=== PATIENT | male | born 1955 | race Caucasian/White ===

== ENCOUNTER 2019-01-06 11:41 | Emergency (ER) | payer MEDICARE ==
[2019-01-06] MEDS ORDERED: Sodium Chloride 0.9% 10 ML Syringe FLUSH PRN (12:10)
[2019-01-06] MEDS ORDERED: HYDROmorphone 1 MG/ML Syringe IVPUSH ONE (12:16)
--- NOTE | 2019-01-06 12:25 | EDM.PDOC ---
ED HPI GENERAL MEDICAL PROBLEM - General Chief Complaint: Abdominal Pain Stated Complaint: ABDOMINAL PAIN Time Seen by Provider: 01/06/19 11:46 Source of Information: Reports: Patient History Limitations: Reports: No Limitations - History of Present Illness INITIAL COMMENTS - FREE TEXT/NARRATIVE: Patient reports left sided abdominal pain that feels like thousands of pins. Has had this pain for several months. He states he was told it was diabetic neuropathy and started on gabapentin. This has not helped. He also has had some nausea and chills recently. No fever, no body aches, no chest pain, not sob, no diarrhea, no bloody stools. He would like help with the pain as he states it has just become unbearable. Smokes 1/2 PPD. Blood sugars run 70-140. Onset: Gradual Duration: Getting Worse Location: Reports: Abdomen Quality: Reports: Other (feels like pins being inserted, like fire) Improves with: Reports: Medication Worsens with: Reports: Movement Associated Symptoms: Reports: No Other Symptoms - Related Data Allergies Allergy/AdvReac Type Severity Reaction Status Date / Time amitriptyline Allergy Other Verified 01/06/19 13:04 diphenhydramine Allergy Other Verified 01/06/19 13:04 tramadol Allergy Other Verified 01/06/19 13:04 Home Meds: Home Meds Albuterol [Ventolin HFA] 2 puff IN Q6H 01/06/19 [History] Aspirin 81 mg PO DAILY 01/06/19 [History] Budesonide/Formoterol [Symbicort 160-4.5 MCG] 2 puff INH BID 01/06/19 [History] Gabapentin [Neurontin] 2 cap PO TID 01/06/19 [History] Losartan Potassium 50 mg PO DAILY 01/06/19 [History] Rosuvastatin Calcium 10 mg PO DAILY 01/06/19 [History] metFORMIN HCl [Metformin ER Gastric] 1,000 mg PO BID 01/06/19 [History] ED ROS GENERAL - Review of Systems Review Of Systems: See Below Constitutional: Reports: No Symptoms HEENT: Reports: No Symptoms Respiratory: Reports: No Symptoms Cardiovascular: Reports: No Symptoms Endocrine: Reports: No Symptoms GI/Abdominal: Reports: Abdominal Pain : Reports: No Symptoms Musculoskeletal: Reports: No Symptoms Skin: Reports: No Symptoms Neurological: Reports: No Symptoms Psychiatric: Reports: No Symptoms Hematologic/Lymphatic: Reports: No Symptoms Immunologic: Reports: No Symptoms ED EXAM, GI/ABD - Physical Exam Exam: See Below Exam Limited By: No Limitations General Appearance: Alert, WD/WN, Mild Distress Eyes: Bilateral: Normal Appearance, EOMI Ears: Normal External Exam, Normal Canal, Hearing Grossly Normal, Normal TMs Nose: Normal Inspection, Normal Mucosa, No Blood Throat/Mouth: Normal Inspection, Normal Lips, Normal Teeth, Normal Gums, Normal Oropharynx, Normal Voice, No Airway Compromise Head: Atraumatic, Normocephalic Neck: Normal Inspection, Supple, Non-Tender, Full Range of Motion Respiratory/Chest: No Respiratory Distress, Lungs Clear, Normal Breath Sounds, No Accessory Muscle Use, Chest Non-Tender Cardiovascular: Normal Peripheral Pulses, Regular Rate, Rhythm, No Edema, No Gallop, No JVD, No Murmur, No Rub GI/Abdominal Exam: Normal Bowel Sounds, Soft, Non-Tender, No Organomegaly, No Distention, No Abnormal Bruit, No Mass, Pelvis Stable Back Exam: Normal Inspection, Full Range of Motion, NT Extremities: Normal Inspection, Normal Range of Motion, Non-Tender, Normal Capillary Refill, No Pedal Edema Neurological: Other (pain to palpation to abdomen/back, feels like pinpricks) Psychiatric: Anxious Skin Exam: Warm Lymphatic: No Adenopathy Course - Vital Signs Last Recorded V/S: Last Vital Signs Temp 35.8 C 01/06/19 11:46 Pulse 97 01/06/19 11:46 Resp 16 01/06/19 11:46 BP 132/96 H 01/06/19 11:46 Pulse Ox 98 01/06/19 11:46 - Orders/Labs/Meds Orders: Active Orders 24 hr Category Date Time Status C-REACTIVE PROTEIN [CHEM] Stat Lab 01/06/19 12:10 Ordered CBC WITH AUTO DIFF [HEME] Stat Lab 01/06/19 12:10 Ordered COMPREHENSIVE METABOLIC PN,CMP [CHEM] Stat Lab 01/06/19 12:10 Ordered TSH ULTRASENSITIVE [CHEM] Stat Lab 01/06/19 12:10 Ordered UA W/MICROSCOPIC [URIN] Stat Lab 01/06/19 12:10 Ordered Sodium Chloride 0.9% [Normal Saline] 1,000 ml Med 01/06/19 12:30 Ordered IV ASDIRECTED Sodium Chloride 0.9% [Saline Flush] Med 01/06/19 12:10 Ordered 10 ml FLUSH ASDIRECTED PRN Saline Lock Insert [OM.PC] Routine Oth 01/06/19 12:10 Ordered Medication Orders Sodium Chloride (Normal Saline) 1,000 mls @ 999 mls/hr IV ASDIRECTED KALEB Sodium Chloride (Saline Flush) 10 ml FLUSH ASDIRECTED PRN PRN Reason: Keep Vein Open Meds: Medications Generic Name Dose Route Start Last Admin Trade Name Freq PRN Reason Stop Dose Admin Sodium Chloride 1,000 mls @ 999 mls/hr 01/06/19 12:30 Normal Saline IV ASDIRECTED KALEB Sodium Chloride 10 ml 01/06/19 12:10 Saline Flush FLUSH ASDIRECTED PRN Keep Vein Open Discontinued Medications Generic Name Dose Route Start Last Admin Trade Name Freq PRN Reason Stop Dose Admin Hydromorphone HCl 1 mg 01/06/19 12:16 Dilaudid IVPUSH 01/06/19 12:17 ONETIME ONE Departure - Departure Time of Disposition: 14:03 Disposition: Home, Self-Care 01 Condition: Good Clinical Impression: Diabetic neuropathy, painful - Discharge Information *PRESCRIPTION DRUG MONITORING PROGRAM REVIEWED*: No *COPY OF PRESCRIPTION DRUG MONITORING REPORT IN PATIENT DANUTA: No Instructions: Neuropathic Pain, Diabetes Mellitus and Nutrition Additional Instructions: Plan 1. Establish care with a primary provider here in [place] 2. Start Lyrica 50 mg every 8 hours, reduce gabapentin to 1 tablet twice a day for 3 days, then 1 tablet daily for 2 days, then discontinue while on lyrica. Do not operate any equipment or drive while taking these medications until you know how they will effect you 3. I did write for refills of the Lyrica so you will need to see a primary for additional refills. They may also want to try something different 4. [facility] use of narcotic pain medications is not recommended for neuropathic pain. I will be unable to prescribe any due to this 5. Keep your diabetes well controlled as if it is not, your neuropathic pain can spread more quickly and become more painful 6. Please call if you have any additional questions or concerns - Problem List & Annotations (1) Diabetic neuropathy, painful SNOMED Code(s): 471202336, [id number] Code(s): E11.40 - TYPE 2 DIABETES MELLITUS WITH DIABETIC NEUROPATHY, UNSP Status: Acute Priority: Medium Current Visit: Yes - Problem List Review Problem List Initiated/Reviewed/Updated: Yes - My Orders Last 24 Hours: My Active Orders 01/06/19 12:10 C-REACTIVE PROTEIN [CHEM] Stat CBC WITH AUTO DIFF [HEME] Stat COMPREHENSIVE METABOLIC PN,CMP [CHEM] Stat TSH ULTRASENSITIVE [CHEM] Stat UA W/MICROSCOPIC [URIN] Stat Sodium Chloride 0.9% [Saline Flush] 10 ml FLUSH ASDIRECTED PRN Saline Lock Insert [OM.PC] Routine 01/06/19 12:30 Sodium Chloride 0.9% [Normal Saline] 1,000 ml IV ASDIRECTED - Assessment/Plan Last 24 Hours: My Active Orders 01/06/19 12:10 C-REACTIVE PROTEIN [CHEM] Stat CBC WITH AUTO DIFF [HEME] Stat COMPREHENSIVE METABOLIC PN,CMP [CHEM] Stat TSH ULTRASENSITIVE [CHEM] Stat UA W/MICROSCOPIC [URIN] Stat Sodium Chloride 0.9% [Saline Flush] 10 ml FLUSH ASDIRECTED PRN Saline Lock Insert [OM.PC] Routine 01/06/19 12:30 Sodium Chloride 0.9% [Normal Saline] 1,000 ml IV ASDIRECTED Assessment:: diabetic neuropathy Plan: Plan 1. Establish care with a primary provider here in [place] 2. Start Lyrica 50 mg every 8 hours, reduce gabapentin to 1 tablet twice a day for 3 days, then 1 tablet daily for 2 days, then discontinue while on lyrica. Do not operate any equipment or drive while taking these medications until you know how they will effect you 3. I did write for refills of the Lyrica so you will need to see a primary for additional refills. They may also want to try something different 4. [facility] use of narcotic pain medications is not recommended for neuropathic pain. I will be unable to prescribe any due to this 5. Keep your diabetes well controlled as if it is not, your neuropathic pain can spread more quickly and become more painful 6. Please call if you have any additional questions or concerns
[2019-01-06] MEDS ORDERED: Sodium Chloride 0.9% 1,000 ML IV SCH (12:30)
[2019-01-06 12:45] LABS: HEMOGLOBIN A1C 6.6 % (4.5-6.2)
[2019-01-06 13:10] LABS: CHLORIDE,CL 98 mmol/L (98-107); SODIUM,NA 135 mmol/L (136-145)
[2019-01-06 13:11] LABS: ANION GAP 15.4 mmol/L (10-20)
== END 2019-01-06 14:03 | disposition home or self-care (01) ==
LOC: VM.ED 11:41
DX: E11.40 Type 2 diabetes mellitus with diabetic neuropathy, unspecified (principal); Z79.82 Long term (current) use of aspirin; Z79.84 Long term (current) use of oral hypoglycemic drugs; Z88.8 Allergy status to other drugs, medicaments and biological substances; Z88.5 Allergy status to narcotic agent
CPT/HCPCS: 80053; 81001; 83036; 84443; 85025; 86140; 96361; 96374; 99283; J1170; J7030; 36415

== ENCOUNTER 2019-02-02 10:39 | Emergency (ER) | payer MEDICARE ==
[2019-02-02] MEDS ORDERED: methylPREDNISolone Sodium Succinate 125 MG/2 ML SDV IV ONE (11:00)
[2019-02-02] MEDS ORDERED: Morphine 4 MG/ML Syringe IVPUSH ONE (11:03)
[2019-02-02 11:41] LABS: CHLORIDE,CL 92 mmol/L (98-107)
[2019-02-02 11:43] LABS: ANION GAP 15.2 mmol/L (10-20); SODIUM,NA 126 mmol/L (136-145)
[2019-02-02] MEDS ORDERED: Sodium Chloride 0.9% 1,000 ML IV ONE (11:43)
--- NOTE | 2019-02-02 12:32 | CR ---
[id number] RAD/RAD Chest PA or AP 1V EXAM: FRONTAL CHEST INDICATION: Chest pain. COMPARISON: December 04, 2010. DISCUSSION: Development of mild right hilar fullness. Mild scarring or atelectasis in the lung bases. Normal heart size. Chronic right seventh rib fracture without interval change. IMPRESSION: 1. Development of mild right hilar fullness. Consider chest CT with contrast for further evaluation. Neil Stewart MD 02/02/19 0544 Thank you for allowing us to participate in the care of your patient.
[2019-02-02] MEDS ORDERED: Acetaminophen/HYDROcodone 325-10 MG Tab PO ONE (12:45)
[2019-02-02] MEDS ORDERED: Ketorolac 15 MG/ML SDV IVPUSH ONE (12:45)
[2019-02-02] MEDS ORDERED: Iopamidol 612 MG/ML 100 ML Bottle IVPUSH ONE (12:52)
--- NOTE | 2019-02-02 13:56 | CT ---
[id number] CT/CT Chest W IV Exam: CT Chest W IV Clinical Data: RIGHT HILAR MASS. CHEST PAIN. COMPARISON: CORRELATION IS MADE WITH TODAY'S CHEST RADIOGRAPH. FINDINGS: Extensive bullous lung disease is seen. There is a 2 cm enhancing liver mass in segment VII, likely a hemangioma. There are no pulmonary emboli. There are atheromatous calcifications. There is evidence of bronchiectasis. There is no adrenal mass. A 2 cm soft tissue density is seen on image 44, series 2. This is in the right hilar region. There are minimal exam is unremarkable. IMPRESSION: 2 CM RIGHT HILAR SOFT TISSUE DENSITY ON IMAGE 44, SERIES 2. THIS FINDING MAY BENEFIT FROM FURTHER FOLLOW-UP. CONSIDER SURGICAL OPINION. Fadi Taylor MD 02/02/19 3736 Thank you for allowing us to participate in the care of your patient.
--- NOTE | 2019-02-02 20:34 | EDM.PDOC ---
ED HPI GENERAL MEDICAL PROBLEM - General Chief Complaint: Chest Pain Stated Complaint: neuropathy pain Time Seen by Provider: 02/02/19 10:45 Source of Information: Reports: Patient History Limitations: Reports: No Limitations - History of Present Illness INITIAL COMMENTS - FREE TEXT/NARRATIVE: Pt. presents to ER complaining of severe L sided anteriolateral chest pain. He states that he has been having issues with cough and wheezing recently. He has had a productive cough. He is a smoker. He states that he has been dealing with and has been worked up for neuropathic chest discomfort and is currently on gabapentin for this. He states that this discomfort is potentiated with movement, deep breathing, and cough. He complains of intermittent chills. No nausea, vomiting, or diarrhea. Denies any sore throat. No rhinorrhea. Denies any skin rashes. 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, Other (see below) (gabapentin) Chest Pain Score (Numeric/FACES): 10 - Related Data Allergies Allergy/AdvReac Type Severity Reaction Status Date / Time amitriptyline Allergy Other Verified 01/06/19 13:04 diphenhydramine Allergy Other Verified 01/06/19 13:04 tramadol Allergy Other Verified 01/06/19 13:04 Home Meds: Home Meds Albuterol [Ventolin HFA] 2 puff IN Q6H 01/06/19 [History] Aspirin 81 mg PO DAILY 01/06/19 [History] Budesonide/Formoterol [Symbicort 160-4.5 MCG] 2 puff INH BID 01/06/19 [History] Gabapentin [Neurontin] 2 cap PO TID 01/06/19 [History] Losartan Potassium 50 mg PO DAILY 01/06/19 [History] Rosuvastatin Calcium 10 mg PO DAILY 01/06/19 [History] metFORMIN HCl [Metformin ER Gastric] 1,000 mg PO BID 01/06/19 [History] Past Medical History Cardiovascular History: Reports: High Cholesterol, Hypertension Respiratory History: Reports: COPD Endocrine/Metabolic History: Reports: Diabetes, Type II Social & Family History - Family History Family Medical History: Noncontributory - Tobacco Use Smoking Status *Q: Current Every Day Smoker Years of Tobacco use: 20 Packs/Tins Daily: 0.2 - Recreational Drug Use Recreational Drug Use: No ED ROS GENERAL - Review of Systems Review Of Systems: See Below Constitutional: Reports: Chills. Denies: Malaise, Weakness, Fatigue, Diaphoresis HEENT: Reports: No Symptoms Respiratory: Reports: Pleuritic Chest Pain, Cough, Sputum Cardiovascular: Reports: Chest Pain Endocrine: Reports: No Symptoms GI/Abdominal: Reports: No Symptoms : Reports: No Symptoms Musculoskeletal: Reports: No Symptoms Skin: Reports: No Symptoms Neurological: Reports: Other (hx. of neuropathic chest pain) Psychiatric: Reports: No Symptoms Hematologic/Lymphatic: Reports: No Symptoms Immunologic: Reports: No Symptoms ED EXAM, GENERAL - Physical Exam Exam: See Below Exam Limited By: No Limitations General Appearance: Alert, WD/WN, No Apparent Distress Eye Exam: Bilateral Eye: EOMI, Normal Fundi, Normal Inspection, PERRL Throat/Mouth: Normal Inspection, Normal Lips, Normal Teeth, Normal Gums, Normal Oropharynx, Normal Voice, No Airway Compromise Head: Atraumatic, Normocephalic Neck: Normal Inspection, Supple, Non-Tender, Full Range of Motion Respiratory/Chest: No Respiratory Distress, Decreased Breath Sounds, Crackles, Wheezing, Other (chest exquisitely tender to palpation on the L anterior and lateral areas. No rash noted. No erythema. No crepitus noted. No rub noted.) Cardiovascular: Normal Peripheral Pulses, Regular Rate, Rhythm, No Edema, No JVD , No Rub Peripheral Pulses: 4+: Radial (L), Radial (R) GI/Abdominal: Normal Bowel Sounds, Soft, Non-Tender, No Organomegaly, No Distention (Male) Exam: Deferred Rectal (Males) Exam: Deferred Back Exam: Normal Inspection, Full Range of Motion Extremities: Normal Inspection, Normal Range of Motion, Non-Tender, No Pedal Edema, Normal Capillary Refill Neurological: Alert, Oriented, CN II-XII Intact, Normal Cognition, Normal Gait, Normal Reflexes, No Motor/Sensory Deficits Psychiatric: Normal Affect, Tearful Skin Exam: Warm, Dry, Intact, Normal Color, No Rash Lymphatic: No Adenopathy EKG INTERPRETATION Rhythm: NSR [place]: Normal P-Wave: Present QRS: Normal ST-T: Normal QT: Normal Course - Vital Signs Last Recorded V/S: Last Vital Signs Temp 36.7 C 02/02/19 10:40 Pulse 88 02/02/19 13:20 Resp 20 02/02/19 14:10 BP 116/66 02/02/19 14:10 Pulse Ox 91 L 02/02/19 14:10 - Orders/Labs/Meds Orders: Active Orders 24 hr Category Date Time Status EKG Documentation Completion [RC] STAT Care 02/02/19 10:59 Active Labs: Laboratory Tests 02/02/19 02/02/19 02/02/19 Range/Units 11:13 11:13 11:13 WBC 8.7 (4.0-10.0) x10^3/uL RBC 4.76 (4.5-6.0) x10^6/uL Hgb 15.1 (14.0-18.0) g/dL Hct 42.8 (40.0-52.0) % MCV 89.9 (78.0-93.0) fL MCH 31.7 (26.0-32.0) pg MCHC 35.3 (32.0-36.0) g/dL RDW Coeff of Viktoriya 12.9 (10.0-15.0) % Plt Count 287 D (130-400) x10^3/uL Neut % (Auto) 76.5 (50.0-80.0) % Lymph % (Auto) 11.3 L (25.0-50.0) % [place] % (Auto) 11.8 H (2.0-11.0) % Eos % (Auto) 0.1 (0.0-4.0) % Baso % (Auto) 0.3 (0.2-1.2) % PT 10.0 (10.0-12.8) SEC INR 0.9 L (2.0-3.5) D-Dimer, Quantitative (<=0.58) mg/LFEU Sodium 126 L* (136-145) mmol/L Potassium 4.2 (3.5-5.1) mmol/L Chloride 92 L (98-107) mmol/L Carbon Dioxide 23 (21-32) mmol/L Anion Gap 15.2 (10-20) mmol/L BUN 11 (7-18) mg/dL Creatinine 0.7 (0.70-1.30) mg/dL Est Cr Clr Drug Dosing TNP Estimated GFR (MDRD) > 60 Glucose 131 H (74-106) mg/dL Lactic Acid (0.4-2.0) mmol/L Calcium 9.0 (8.5-10.1) mg/dL Corrected Calcium 9.00 (8.5-10.1) mg/dL Phosphorus 2.9 (2.6-4.7) mg/dL Magnesium 1.8 (1.8-2.4) mg/dL Total Bilirubin 0.6 (0.2-1.0) mg/dL AST 23 (15-37) U/L ALT 30 (16-63) U/L Alkaline Phosphatase 88 (46-116) U/L POC Troponin I (0.00-0.08) ng/mL C-Reactive Protein 3.3 H (<=0.9) mg/dL Total Protein 8.4 H (6.4-8.2) g/dL Albumin 4.0 (3.4-5.0) g/dL Globulin 4.4 Albumin/Globulin Ratio 0.91 02/02/19 02/02/19 02/02/19 Range/Units 11:13 11:13 11:20 WBC (4.0-10.0) x10^3/uL RBC (4.5-6.0) x10^6/uL Hgb (14.0-18.0) g/dL Hct (40.0-52.0) % MCV (78.0-93.0) fL MCH (26.0-32.0) pg MCHC (32.0-36.0) g/dL RDW Coeff of Viktoriya (10.0-15.0) % Plt Count (130-400) x10^3/uL Neut % (Auto) (50.0-80.0) % Lymph % (Auto) (25.0-50.0) % [place] % (Auto) (2.0-11.0) % Eos % (Auto) (0.0-4.0) % Baso % (Auto) (0.2-1.2) % PT (10.0-12.8) SEC INR (2.0-3.5) D-Dimer, Quantitative 0.26 (<=0.58) mg/LFEU Sodium (136-145) mmol/L Potassium (3.5-5.1) mmol/L Chloride (98-107) mmol/L Carbon Dioxide (21-32) mmol/L Anion Gap (10-20) mmol/L BUN (7-18) mg/dL Creatinine (0.70-1.30) mg/dL Est Cr Clr Drug Dosing Estimated GFR (MDRD) Glucose (74-106) mg/dL Lactic Acid 1.0 (0.4-2.0) mmol/L Calcium (8.5-10.1) mg/dL Corrected Calcium (8.5-10.1) mg/dL Phosphorus (2.6-4.7) mg/dL Magnesium (1.8-2.4) mg/dL Total Bilirubin (0.2-1.0) mg/dL AST (15-37) U/L ALT (16-63) U/L Alkaline Phosphatase (46-116) U/L POC Troponin I 0.00 (0.00-0.08) ng/mL C-Reactive Protein (<=0.9) mg/dL Total Protein (6.4-8.2) g/dL Albumin (3.4-5.0) g/dL Globulin Albumin/Globulin Ratio Meds: Medications Discontinued Medications Generic Name Dose Route Start Last Admin Trade Name Freq PRN Reason Stop Dose Admin Hydrocodone Bitart/Acetaminophen 1 tab 02/02/19 12:45 02/02/19 12:55 [place] 325-10 Mg PO 02/02/19 12:46 1 tab ONETIME ONE Administration Sodium Chloride 1,000 mls @ 1,000 mls/hr 02/02/19 11:43 02/02/19 11:45 Normal Saline IV 02/02/19 12:42 1,000 mls/hr ONETIME ONE Administration Iopamidol 100 ml 02/02/19 12:52 02/02/19 13:20 Isovue-300 (61%) IVPUSH 02/02/19 12:53 100 ml ONETIME ONE Administration Ketorolac Tromethamine 15 mg 02/02/19 12:45 02/02/19 12:52 Toradol IVPUSH 02/02/19 12:46 15 mg ONETIME ONE Administration Methylprednisolone Sodium Succinate 125 mg 02/02/19 11:00 02/02/19 11:27 Solu-Medrol IV 02/02/19 11:01 125 mg ONETIME ONE Administration Morphine Sulfate 4 mg 02/02/19 11:03 02/02/19 11:27 Morphine IVPUSH 02/02/19 11:04 4 mg ONETIME ONE Administration - Radiology Interpretation Free Text/Narrative:: CXR shows increased hilar opacification/mass on the R. No pathology on L or in area of discomfort. CT chest with contrast was obtained and showed 2 cm R hilar density; pt. reports that he has some scarring to the lung tissue following a pneumothorax several years ago. This is an incidental finding and again not in the area of pain. No pleural thickening of fluid noted on the L. There is evidence of bronchiectasis. - Re-Assessments/Exams Free Text/Narrative Re-Assessment/Exam: Pt. was given solu medrol and morphine which did not help with discomfort. Pt. was subsequently given toradol and oral [place] which did help somewhat with the discomfort. He was given a liter of NS IV. He remained stable in by care in ER. Departure - Departure Time of Disposition: 14:16 Disposition: Home, Self-Care 01 Clinical Impression: Atypical chest pain, COPD exacerbation - Discharge Information Instructions: Chronic Obstructive Pulmonary Disease Exacerbation, Nonspecific Chest Pain, [id number], Pulmonary Nodule, [id number], Probiotics Referrals: Bob Nunez MD [Primary Care Provider] - Forms: ED Department Discharge Additional Instructions: Prednisone 40mg once daily [place] 10/325mg 1 every 6 hours Ibuprofen 600mg every 6 hours Doxycycline 100mg twice daily for 10 days There was an incidental finding of a lung nodule that will likely need to be followed by [facility]. Discuss this with Dr. Nunez when you follow-up in 10-14 days - My Orders Last 24 Hours: My Active Orders 02/02/19 10:59 EKG Documentation Completion [RC] STAT - Assessment/Plan Last 24 Hours: My Active Orders 02/02/19 10:59 EKG Documentation Completion [RC] STAT Plan: rednisone 40mg once daily [place] 10/325mg 1 every 6 hours Ibuprofen 600mg every 6 hours Doxycycline 100mg twice daily for 10 days There was an incidental finding of a lung nodule that will likely need to be followed by [facility]. Discuss this with Dr. Nunez when you follow-up in 10-14 days
== END 2019-02-02 14:16 | disposition home or self-care (01) ==
LOC: VM.ED 10:39
DX: J44.1 Chronic obstructive pulmonary disease with (acute) exacerbation (principal); R07.89 Other chest pain; F17.210 Nicotine dependence, cigarettes, uncomplicated; E11.9 Type 2 diabetes mellitus without complications; Z79.84 Long term (current) use of oral hypoglycemic drugs; Z79.82 Long term (current) use of aspirin; Z79.899 Other long term (current) drug therapy; Z88.6 Allergy status to analgesic agent; Z88.8 Allergy status to other drugs, medicaments and biological substances
CPT/HCPCS: 71045; 71260; 80053; 83605; 83735; 84100; 84484; 85025; 85379; 85610; 86140; 93005; 93010; 96361; 96374; 96375; 99284-GF; 99285-25; A9270-GY; J1885; J2270; J2930; J7030; Q9967

== ENCOUNTER 2019-12-29 12:21 | Emergency (ER) | payer MEDICARE ==
[2019-12-29] MEDS ORDERED: Ondansetron 4 MG/2 ML SDV IVPUSH ONE (12:51)
[2019-12-29] MEDS ORDERED: fentaNYL 100 MCG/2 ML SDV IVPUSH ONE ×2 (12:51→15:29)
[2019-12-29] MEDS ORDERED: Sodium Chloride 0.9% 10 ML Syringe FLUSH PRN (12:51)
[2019-12-29] MEDS ORDERED: Sodium Chloride 0.9% 1,000 ML IV ONE (12:51)
[2019-12-29] MEDS ORDERED: Ketorolac 30 MG/ML SDV IVPUSH ONE (12:51)
--- NOTE | 2019-12-29 12:53 | EDM.PDOC ---
ED HPI GENERAL MEDICAL PROBLEM - General Chief Complaint: Skin Complaint Stated Complaint: PAIN IN ABDOMEN/R SIDE Time Seen by Provider: 12/29/19 12:44 Source of Information: Reports: Patient - History of Present Illness INITIAL COMMENTS - FREE TEXT/NARRATIVE: Ibrahima is a 64 y/o male who comes to the ER with complaints of pain in the RUQ that he "has had for months". He reports that he thinks the pain is nueropathy and that he was given dome Lyrica, but only took it a few weeks and then did not have refills so he quit. He has not been in to see a PCP since last fall. He also admits he has not taken any of his chronic meds in a few months. He attempte to get an appt with Dr Arturo Raza today at the [facility], but apparently they could not find his records. He denies any issues with constipation, diarrhea, or voiding. He rates the pain constant and 10/10 in the RUQ region. Right Thoracic Pain Score (Numeric/FACES): 10 - Related Data Allergies Allergy/AdvReac Type Severity Reaction Status Date / Time amitriptyline Allergy Other Verified 01/06/19 13:04 diphenhydramine Allergy Other Verified 01/06/19 13:04 tramadol Allergy Other Verified 01/06/19 13:04 Home Meds: Home Meds HYDROcodone/Ibuprofen [Vicoprofen] 1 tab PO Q6H PRN 5 Days #20 tab 12/29/19 [Rx] Past Medical History Cardiovascular History: Reports: High Cholesterol, Hypertension Respiratory History: Reports: COPD Endocrine/Metabolic History: Reports: Diabetes, Type II Social & Family History - Family History Family Medical History: Noncontributory ED ROS GENERAL - Review of Systems Review Of Systems: See Below Constitutional: Reports: No Symptoms HEENT: Reports: No Symptoms Respiratory: Reports: No Symptoms Cardiovascular: Reports: No Symptoms Endocrine: Reports: No Symptoms GI/Abdominal: Reports: Abdominal Pain (RUQ pain). Denies: Constipation, Diarrhea, Decreased Appetite, Nausea, Vomiting : Reports: No Symptoms Musculoskeletal: Reports: No Symptoms Skin: Reports: No Symptoms Neurological: Reports: Tingling (RUQ region) Psychiatric: Reports: No Symptoms Hematologic/Lymphatic: Reports: No Symptoms Immunologic: Reports: No Symptoms ED EXAM, SKIN/RASH Exam: See Below General Appearance: Alert, WD/WN, No Apparent Distress, Other (Adult male, sitting on ER cart holding up his shirt and pointing to the pain.) Ears: Normal Canal, Hearing Grossly Normal Nose: Normal Inspection Throat/Mouth: Normal Inspection, Normal Lips, Normal Teeth Head: Atraumatic, Normocephalic Neck: Normal Inspection Respiratory/Chest: No Respiratory Distress, Lungs Clear, Normal Breath Sounds, No Accessory Muscle Use, Chest Non-Tender Cardiovascular: Normal Peripheral Pulses, Regular Rate, Rhythm, No Murmur GI/Abdominal: Normal Bowel Sounds, Soft, Guarding, Tender, Mass (RUQ region, + tenderness) (Male) Exam: Deferred Rectal (Males) Exam: Deferred Back Exam: Normal Inspection. No: CVA Tenderness (L), CVA Tenderness (R) Extremities: Normal Inspection, Normal Range of Motion, Normal Capillary Refill Neurological: Alert, Oriented, CN II-XII Intact, Normal Cognition, Normal Gait Psychiatric: Normal Affect, Normal Mood Skin: Warm, Dry, Intact, Normal Color, No Rash Lymphatic: No Adenopathy Course - Vital Signs Text/Narrative:: 1250 The patient was seen by the RN CLINICAL DOCUMENTATION SPECIALIST. Labs adn CT ordered. He was also given a liter of NS, Fentanyl 100mcg IVP, Toradol 30 mg IVP, and Zofran 4mg IVP. [address] results. Pain returning to RUQ region, will order Fentanyl 100mcg IVP. 1535 [facility] contacted and CT sent for surgeon to review and advise of any acute findings. Awaiting call back from [place]. [address] Leigh, order caller surgeon at [place]. She not fell there was anything acute and advised OP follow up for the MRI as recommended. Patient was given discharge instructions and sent home in stable condition. Last Recorded V/S: Last Vital Signs Temp 36.6 C 12/29/19 12:28 Pulse 104 H 12/29/19 12:28 Resp 16 12/29/19 12:28 BP 161/104 H 12/29/19 12:28 Pulse Ox 97 12/29/19 12:28 - Orders/Labs/Meds Orders: Active Orders 24 hr Category Date Time Status Sodium Chloride 0.9% [Saline Flush] Med 12/29/19 12:51 Active 10 ml FLUSH ASDIRECTED PRN Saline Lock Insert [OM.PC] Stat Oth 12/29/19 12:51 Ordered Medication Orders Sodium Chloride (Saline Flush) 10 ml FLUSH ASDIRECTED PRN PRN Reason: Keep Vein Open Labs: Laboratory Tests 12/29/19 12/29/19 12/29/19 Range/Units 13:10 13:10 13:20 WBC 8.9 (4.0-10.0) x10^3/uL RBC 5.34 (4.5-6.0) x10^6/uL Hgb 16.4 (14.0-18.0) g/dL Hct 47.5 (40.0-52.0) % MCV 89.0 (78.0-93.0) fL MCH 30.7 (26.0-32.0) pg MCHC 34.5 (32.0-36.0) g/dL RDW Coeff of Viktoriya 12.8 (10.0-15.0) % Plt Count 366 D (130-400) x10^3/uL Neut % (Auto) 59.4 (50.0-80.0) % Lymph % (Auto) 30.5 (25.0-50.0) % Porter % (Auto) 7.6 (2.0-11.0) % Eos % (Auto) 1.8 (0.0-4.0) % Baso % (Auto) 0.7 (0.2-1.2) % Sodium 136 (136-145) mmol/L Potassium 4.3 (3.5-5.1) mmol/L Chloride 98 (98-107) mmol/L Carbon Dioxide 27 (21-32) mmol/L Anion Gap 15.3 (10-20) mmol/L BUN 15 (7-18) mg/dL Creatinine 0.8 (0.70-1.30) mg/dL Est Cr Clr Drug Dosing TNP Estimated GFR (MDRD) > 60 Glucose 134 H (74-106) mg/dL Calcium 9.2 (8.5-10.1) mg/dL Corrected Calcium 9.12 (8.5-10.1) mg/dL Total Bilirubin 0.5 (0.2-1.0) mg/dL AST 20 (15-37) U/L ALT 31 (16-63) U/L Alkaline Phosphatase 84 (46-116) U/L Total Protein 8.3 H (6.4-8.2) g/dL Albumin 4.1 (3.4-5.0) g/dL Globulin 4.2 Albumin/Globulin Ratio 0.98 Amylase 61 (25-115) U/L Lipase 156 (73-393) U/L Urine Color Dark yellow H (YELLOW) Urine Appearance Clear (CLEAR) Urine pH 6.0 (5.0-8.0) Ur Specific [place] 1.025 Urine Protein Negative (NEGATIVE) mg/dL Urine Glucose (UA) 250 H (NEGATIVE) mg/dL Urine Ketones Negative (NEGATIVE) mg/dL Urine Occult Blood Negative (NEGATIVE) Urine Nitrite Negative (NEGATIVE) Urine Bilirubin Negative (NEGATIVE) Urine Urobilinogen 0.2 (0.2) EU/dL Ur Leukocyte Esterase Negative (NEGATIVE) Urine Opiates Screen (NEGATIVE) Ur Buprenorphine Scrn (NEGATIVE) Ur Oxycodone Screen (NEGATIVE) Ur EDDP (Meth Metab) (NEGATIVE) Urine Methadone Screen (NEGATIVE) Ur Barbituates Screen (NEGATIVE) Ur Tricyclics Screen (NEGATIVE) Ur Phencyclidine Scrn (NEGATIVE) Ur Amphetamines Screen (NEGATIVE) U Methamphetamines Scrn (NEGATIVE) Urine MDMA Screen (NEGATIVE) U Benzodiazepines Scrn (NEGATIVE) Urine Cocaine Screen (NEGATIVE) U Marijuana (THC) Screen (NEGATIVE) Ethyl Alcohol < 3 (0-3) mg/dL 12/29/19 Range/Units 13:20 WBC (4.0-10.0) x10^3/uL RBC (4.5-6.0) x10^6/uL Hgb (14.0-18.0) g/dL Hct (40.0-52.0) % MCV (78.0-93.0) fL MCH (26.0-32.0) pg MCHC (32.0-36.0) g/dL RDW Coeff of Viktoriya (10.0-15.0) % Plt Count (130-400) x10^3/uL Neut % (Auto) (50.0-80.0) % Lymph % (Auto) (25.0-50.0) % Porter % (Auto) (2.0-11.0) % Eos % (Auto) (0.0-4.0) % Baso % (Auto) (0.2-1.2) % Sodium (136-145) mmol/L Potassium (3.5-5.1) mmol/L Chloride (98-107) mmol/L Carbon Dioxide (21-32) mmol/L Anion Gap (10-20) mmol/L BUN (7-18) mg/dL Creatinine (0.70-1.30) mg/dL Est Cr Clr Drug Dosing Estimated GFR (MDRD) Glucose (74-106) mg/dL Calcium (8.5-10.1) mg/dL Corrected Calcium (8.5-10.1) mg/dL Total Bilirubin (0.2-1.0) mg/dL AST (15-37) U/L ALT (16-63) U/L Alkaline Phosphatase (46-116) U/L Total Protein (6.4-8.2) g/dL Albumin (3.4-5.0) g/dL Globulin Albumin/Globulin Ratio Amylase (25-115) U/L Lipase (73-393) U/L Urine Color (YELLOW) Urine Appearance (CLEAR) Urine pH (5.0-8.0) Ur Specific [place] Urine Protein (NEGATIVE) mg/dL Urine Glucose (UA) (NEGATIVE) mg/dL Urine Ketones (NEGATIVE) mg/dL Urine Occult Blood (NEGATIVE) Urine Nitrite (NEGATIVE) Urine Bilirubin (NEGATIVE) Urine Urobilinogen (0.2) EU/dL Ur Leukocyte Esterase (NEGATIVE) Urine Opiates Screen Negative (NEGATIVE) Ur Buprenorphine Scrn Negative (NEGATIVE) Ur Oxycodone Screen Negative (NEGATIVE) Ur EDDP (Meth Metab) Negative (NEGATIVE) Urine Methadone Screen Negative (NEGATIVE) Ur Barbituates Screen Negative (NEGATIVE) Ur Tricyclics Screen Negative (NEGATIVE) Ur Phencyclidine Scrn Negative (NEGATIVE) Ur Amphetamines Screen Negative (NEGATIVE) U Methamphetamines Scrn Negative (NEGATIVE) Urine MDMA Screen Negative (NEGATIVE) U Benzodiazepines Scrn Negative (NEGATIVE) Urine Cocaine Screen Negative (NEGATIVE) U Marijuana (THC) Screen Positive H (NEGATIVE) Ethyl Alcohol (0-3) mg/dL Meds: Medications Generic Name Dose Route Start Last Admin Trade Name Freq PRN Reason Stop Dose Admin Sodium Chloride 10 ml 12/29/19 12:51 Saline Flush FLUSH ASDIRECTED PRN Keep Vein Open Discontinued Medications Generic Name Dose Route Start Last Admin Trade Name Freq PRN Reason Stop Dose Admin Fentanyl 100 mcg 12/29/19 12:51 12/29/19 13:19 Sublimaze IVPUSH 12/29/19 12:52 100 mcg ONETIME ONE Administration Fentanyl 100 mcg 12/29/19 15:29 12/29/19 15:40 Sublimaze IVPUSH 12/29/19 15:30 100 mcg ONETIME ONE Administration Sodium Chloride 1,000 mls @ 999 mls/hr 12/29/19 12:51 12/29/19 13:15 Normal Saline IV 12/29/19 13:51 999 mls/hr ONETIME ONE Administration Iopamidol 100 ml 12/29/19 14:29 12/29/19 14:32 Isovue-300 (61%) IVPUSH 12/29/19 14:30 100 ml ONETIME ONE Administration Ketorolac Tromethamine 30 mg 12/29/19 12:51 12/29/19 13:16 Toradol IVPUSH 12/29/19 12:52 30 mg ONETIME ONE Administration Ondansetron HCl 4 mg 12/29/19 12:51 12/29/19 13:17 Zofran IVPUSH 12/29/19 12:52 4 mg ONETIME ONE Administration - Radiology Interpretation CT Results Date: 12/29/19 CT Results Time: 15:16 (CT Abd/Pelvis W=hepatic steatosis, 2cm lesion in the hepatic dome, recommend MRI for more complete evalution) Departure - Departure Time of Disposition: 16:36 Disposition: Home, Self-Care 01 Clinical Impression: Fatty liver Abdominal pain Qualifiers: Abdominal location: right upper quadrant Qualified Code(s): R10.11 - Right upper quadrant pain - Discharge Information *PRESCRIPTION DRUG MONITORING PROGRAM REVIEWED*: No *COPY OF PRESCRIPTION DRUG MONITORING REPORT IN PATIENT DANUTA: No Prescriptions: HYDROcodone/Ibuprofen [Vicoprofen] 1 tab PO Q6H PRN 5 Days #20 tab PRN Reason: Abdominal Pain Referrals: Bob Nunez MD [Primary Care Provider] - Forms: ED Department Discharge Additional Instructions: -Schedule a clinic appt to establish care with a PCP -Vicoprofen 1 tablet oral every 6 hours as needed for pain #20(Rx) -You need to get back on your diabetic medications and have regular follow ups -You need to discuss the CT with your PCP and get an MRI ordered as recommended in the CT report done today -Return as needed to ER Sepsis Event Note - Evaluation Sepsis Screening Result: No Definite Risk - Focused Exam Vital Signs: Vital Signs Temp Pulse Resp BP Pulse Ox 12/29/19 12:28 36.6 C 104 H 16 161/104 H 97 Date Exam was Performed: 12/29/19 Time Exam was Performed: 16:19 - My Orders Last 24 Hours: My Active Orders 12/29/19 12:51 Sodium Chloride 0.9% [Saline Flush] 10 ml FLUSH ASDIRECTED PRN Saline Lock Insert [OM.PC] Stat - Assessment/Plan Last 24 Hours: My Active Orders 12/29/19 12:51 Sodium Chloride 0.9% [Saline Flush] 10 ml FLUSH ASDIRECTED PRN Saline Lock Insert [OM.PC] Stat
[2019-12-29 13:36] LABS: CHLORIDE,CL 98 mmol/L (98-107); SODIUM,NA 136 mmol/L (136-145)
[2019-12-29 13:38] LABS: BUPRENORPHINE,URINE NEGATIVE (NEGATIVE); MARIJUANA,URINE POSITIVE (NEGATIVE); METHYLENEDIOXYMETHAMP,UR NEGATIVE (NEGATIVE)
[2019-12-29 13:39] LABS: PHENCYCLIDINE,URINE NEGATIVE (NEGATIVE)
[2019-12-29 13:43] LABS: ANION GAP 15.3 mmol/L (10-20)
[2019-12-29] MEDS ORDERED: Iopamidol 612 MG/ML 100 ML Bottle IVPUSH ONE (14:29)
--- NOTE | 2019-12-29 15:17 | CT ---
[id number] CT/CT Abdomen Pelvis W IV EXAM: CT Abdomen Pelvis W IV CLINICAL DATA: RIGHT UPPER QUADRANT PAIN, RIGHT UPPER QUADRANT MASS. COMPARISON STUDY: None. FINDINGS: Lung bases are clear. 2.0 cm hyperdense lesion within the liver dome (series 2 image 22). Generalized hypodensity liver consistent with hepatic steatosis. The gallbladder, spleen, pancreas, adrenal glands and kidneys are unremarkable. No hydronephrosis or hydroureter. No renal mass. No bowel obstruction or inflammation. Colonic diverticulosis without evidence of acute diverticulitis. The appendix is visualized and appears normal. Small fat-containing periumbilical hernia. No lymphadenopathy, free fluid, or pneumoperitoneum. Scattered changes of spondylosis the spine. No fracture or osseous lesion. Postprocedural changes following kyphoplasty of the L3 vertebral body. IMPRESSION: 1. Generalized hypodensity of the liver consistent with hepatic steatosis. There is a 2.0 cm hyperdense lesion within the hepatic dome. It is incompletely evaluated on this single phase study. Underlying hepatoma is not completely excluded. Multi phase MRI of the abdomen is recommended for more complete evaluation. Praveen Mcbride DO 12/29/19 1916 Thank you for allowing us to participate in the care of your patient.
== END 2019-12-29 16:41 | disposition home or self-care (01) ==
LOC: VM.ED 12:21
DX: K76.0 Fatty (change of) liver, not elsewhere classified (principal); I10 Essential (primary) hypertension; E11.9 Type 2 diabetes mellitus without complications; Z88.5 Allergy status to narcotic agent; Z88.8 Allergy status to other drugs, medicaments and biological substances
CPT/HCPCS: 36415; 74177; 80053; 80305; 80307; 81003; 82150; 83690; 85025; 96361; 96374; 96375; 96376; 99284; J1885; J2405; J3010; J7030; Q9967

== ENCOUNTER 2020-03-24 08:53 | Emergency (ER) | payer MEDICARE ==
[2020-03-24] MEDS ORDERED: HYDROmorphone 0.5 MG/0.5 ML Syringe IM ONE (09:23)
[2020-03-24] MEDS ORDERED: Promethazine 25 MG/ML SDV IM ONE (09:23)
[2020-03-24] MEDS ORDERED: Promethazine 25 MG/ML SDV ONE (09:35)
[2020-03-24 09:57] LABS: ANION GAP 18.1 mmol/L (10-20); CHLORIDE,CL 94 mmol/L (98-107); SODIUM,NA 133 mmol/L (136-145)
--- NOTE | 2020-03-24 10:00 | EDM.PDOC ---
ED HPI GENERAL MEDICAL PROBLEM - General Chief Complaint: Abdominal Pain Stated Complaint: ABDOMINAL PAIN Time Seen by Provider: 03/24/20 09:15 Source of Information: Reports: Patient History Limitations: Reports: No Limitations - History of Present Illness INITIAL COMMENTS - FREE TEXT/NARRATIVE: Patient comes emergency department today with complaints of chronic pain that is worsening that starts in his back and radiates around to the front. This patient has struggled with this very similar chronic pain for many years. He is currently referred to the pain clinic in [place] next week for evaluation of his chronic pain. He has had no recent falls traumas or injury to the right side of his chest. He relates that the pain starts in the mid posterior thoracic region wraps around the right side of his chest and goes up to his right shoulder. It is sharp shooting stabbing and constant in nature. He has no other pain in his chest. He has no nausea no vomiting. No weakness dizziness lightheadedness. No palpitations. This is the exact pain that he is struggled with for years and it is just getting out of control. He has not tried anything for the pain prior to arrival. He has used up all of his narcotics from his primary care provider. He has been taking his gabapentin. He has no hematuria dysuria or urinary frequency. No abdominal pain. No constipation. No recent falls trauma or injury to the area. No change in his bowel or bladder habits. No paresthesias of his upper or lower extremities. No chills no fevers Abdomen Pain Score (Numeric/FACES): 10 - Related Data Allergies Allergy/AdvReac Type Severity Reaction Status Date / Time amitriptyline Allergy Other Verified 03/24/20 08:58 diphenhydramine Allergy Other Verified 03/24/20 08:58 tramadol Allergy Other Verified 03/24/20 08:58 Home Meds: Home Meds Aspirin [Halfprin] 81 mg PO DAILY 02/03/20 [History] Gabapentin [Neurontin] 600 mg PO QID 02/03/20 [History] Losartan [Cozaar] 50 mg PO DAILY 02/03/20 [History] Rosuvastatin [Crestor] 10 mg PO DAILY 02/03/20 [History] metFORMIN [Glucophage] 500 mg PO BIDMEALS 02/03/20 [History] Diclofenac Sodium [Voltaren] 75 mg PO BID 03/24/20 [History] HYDROcodone/Ibuprofen [Vicoprofen] 1 tab PO Q6HR PRN 03/24/20 [History] Past Medical History HEENT History: Reports: Other (See Below) Other HEENT History: dental caries Cardiovascular History: Reports: High Cholesterol, Hypertension, Syncope Respiratory History: Reports: COPD Gastrointestinal History: Reports: Other (See Below) Other Gastrointestinal History: colitis, diverticulitis, liver disease, liver lesion, chronic RUQ pain Genitourinary History: Reports: Renal Calculus, Other (See Below) Other Genitourinary History: erectile dysfunction, nephrolithiasis Musculoskeletal History: Reports: Back Pain, Chronic, Fracture, Other (See Below ) Other Musculoskeletal History: chronic pain, osteomyelitis of lower leg Neurological History: Reports: CVA, Other (See Below) Other Neuro History: compression fx L3 Psychiatric History: Reports: Other (See Below). Denies: Abuse, Victim of Other Psychiatric History: cigarette smoker, h/o drug abuse rehab 2-3 years ago , alcoholism quit 5-6 years ago Endocrine/Metabolic History: Reports: Diabetes, Type II, Obesity/BMI 30+ - Infectious Disease History Infectious Disease History: Reports: C-Difficile - Past Surgical History HEENT Surgical History: Reports: Other (See Below) Other HEENT Surgeries/Procedures: endoscopy, nasal Respiratory Surgical History: Reports: Other (See Below) Other Respiratory Surgeries/Procedures: lobectomy right lung due to lung collapse Neurological Surgical History: Reports: Other (See Below) Other Neurological Surgeries/Procedures: back surgery Musculoskeletal Surgical History: Reports: Other (See Below) Other Musculoskeletal Surgeries/Procedures:: I&D left groin abscess Social & Family History - Family History Family Medical History: Unobtainable Cardiac: Reports: CAD, DE Other Cardiac Family History: father and mother - Tobacco Use Smoking Status *Q: Current Every Day Smoker Years of Tobacco use: 45 Packs/Tins Daily: 0.4 - Recreational Drug Use Recreational Drug Type: Reports: Other (see below) Other Recreational Drug Type: CBD oil - Living Situation & Occupation Living situation: Reports: , with Significant 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 ED EXAM, GENERAL - Physical Exam Exam: See Below Free Text/Narrative:: He is sitting on the cot and appears in moderate distress. Exam Limited By: No Limitations General Appearance: Alert, WD/WN, Moderate Distress Eye Exam: Bilateral Eye: EOMI, PERRL Ears: Normal External Exam Nose: Normal Inspection Throat/Mouth: Normal Inspection Head: Atraumatic, Normocephalic Neck: Normal Inspection Respiratory/Chest: No Respiratory Distress, Lungs Clear, Normal Breath Sounds, No Accessory Muscle Use Cardiovascular: Normal Peripheral Pulses, Regular Rate, Rhythm, Tachycardia Peripheral Pulses: 2+: Radial (L), Radial (R), Posterior Tibial (L), Posterior Tibial (R), Dorsalis Pedis (L), Dorsalis Pedis (R) GI/Abdominal: Normal Bowel Sounds, Soft, Non-Tender (Male) Exam: Deferred Rectal (Males) Exam: Deferred Back Exam: No: Normal Inspection (With even the slightest touch to his posterior right mid thoracic region wrapping around to the right side of his chest he has a very hypersensitive response to pain. There is no bruising swelling ecchymosis bony deformities contusions abrasions step-offs. There is no rash or lesions. I can even elicit tenderness on his skin when I am not touching him. Anterior and posterior thorax was really unremarkable for any acute injury or lesions or rashes. ) Extremities: Normal Inspection, Normal Range of Motion, No Pedal Edema, Normal Capillary Refill Neurological: Alert, Oriented, Normal Cognition, Normal Gait, No Motor/Sensory Deficits Psychiatric: Anxious Skin Exam: Warm, Dry, Intact, Normal Color Lymphatic: No Adenopathy Course - Vital Signs Last Recorded V/S: Last Vital Signs Temp 36.3 C 03/24/20 08:59 Pulse 99 03/24/20 10:23 Resp 22 H 03/24/20 10:23 BP 152/101 H 03/24/20 10:23 Pulse Ox 91 L 03/24/20 10:23 - Orders/Labs/Meds Labs: Laboratory Tests 03/24/20 03/24/20 03/24/20 Range/Units 09:19 09:31 09:31 WBC 11.8 H (4.0-10.0) x10^3/uL RBC 5.52 (4.5-6.0) x10^6/uL Hgb 17.0 (14.0-18.0) g/dL Hct 48.5 (40.0-52.0) % MCV 87.9 (78.0-93.0) fL MCH 30.8 (26.0-32.0) pg MCHC 35.1 (32.0-36.0) g/dL RDW Coeff of Viktoriya 13.3 (10.0-15.0) % Plt Count 383 (130-400) x10^3/uL Neut % (Auto) 76.1 (50.0-80.0) % Lymph % (Auto) 16.7 L (25.0-50.0) % [place] % (Auto) 6.5 (2.0-11.0) % Eos % (Auto) 0.3 (0.0-4.0) % Baso % (Auto) 0.4 (0.2-1.2) % Sodium 133 L (136-145) mmol/L Potassium 4.1 (3.5-5.1) mmol/L Chloride 94 L (98-107) mmol/L Carbon Dioxide 25 (21-32) mmol/L Anion Gap 18.1 (10-20) mmol/L BUN 12 (7-18) mg/dL Creatinine 0.9 (0.70-1.30) mg/dL Est Cr Clr Drug Dosing 65.72 mL/min Estimated GFR (MDRD) > 60 Glucose 185 H (74-106) mg/dL Calcium 9.7 (8.5-10.1) mg/dL Corrected Calcium 9.38 (8.5-10.1) mg/dL Total Bilirubin 0.4 (0.2-1.0) mg/dL AST 26 (15-37) U/L ALT 40 (16-63) U/L Alkaline Phosphatase 95 (46-116) U/L Total Protein 8.8 H (6.4-8.2) g/dL Albumin 4.4 (3.4-5.0) g/dL Globulin 4.4 Albumin/Globulin Ratio 1.00 Urine Color Yellow (YELLOW) Urine Appearance Clear (CLEAR) Urine pH 7.5 (5.0-8.0) Ur Specific [place] 1.020 Urine Protein Negative (NEGATIVE) mg/dL Urine Glucose (UA) 500 H (NEGATIVE) mg/dL Urine Ketones Negative (NEGATIVE) mg/dL Urine Occult Blood Negative (NEGATIVE) Urine Nitrite Negative (NEGATIVE) Urine Bilirubin Negative (NEGATIVE) Urine Urobilinogen 0.2 (0.2) EU/dL Ur Leukocyte Esterase Negative (NEGATIVE) Meds: Medications Discontinued Medications Generic Name Dose Route Start Last Admin Trade Name Lauren PRN Reason Stop Dose Admin Hydromorphone HCl 1 mg 03/24/20 09:23 03/24/20 09:33 Dilaudid IM 03/24/20 09:24 1 mg ONETIME ONE Administration Promethazine HCl 25 mg 03/24/20 09:23 03/24/20 09:35 Phenergan IM 03/24/20 09:24 25 mg ONETIME ONE Administration Promethazine HCl Confirm 03/24/20 09:35 03/24/20 09:37 Phenergan Administered 03/24/20 09:36 Not Given Dose 25 mg .ROUTE .[facility] ONE - Radiology Interpretation Free Text/Narrative:: Did review the patient's recent CT scan of his abdomen and pelvis as well as his MRI of his abdomen. The only pathology that was really identified over the past couple of months for his recurrent pain with this very extensive work-up was that he had a liver mass or lesion that he was supposed to have biopsied which she has not. He had a MRI of his thoracic spine on 02/14/2020 endings were pretty unremarkable with no evidence of high-grade foraminal or central canal stenosis. No demyelination mass or other abnormalities to account for neuropathy. - Re-Assessments/Exams Free Text/Narrative Re-Assessment/Exam: Laboratory evaluation is rather unremarkable. He does have an elevated glucose enzymes are normal. His urinalysis has some glucose in it but no blood or any other signs of infection. Given Dilaudid 1 mg IM as well as 25 mg of Phenergan IM. It asked multiple times for prescription of hydrocodone or oxycodone to get him through to his pain clinic appointment on Friday. As he is currently under pain contract with his primary care provider and being referred to a pain clinic and this is a chronic problem without any identifiable acute concerns. I do not feel that prescribing narcotics for this chronic situation in the emergency department is appropriate at this time. He did have some pain relief with the above therapy and he is comfortable with this plan. I did tell him that he needs to see his primary care for his chronic management of his chronic pain or the DELIVERY STOCK CLERK here that he has been seeing chronically for his chronic pain or see the pain clinic that he is set up to see on Friday for his chronic pain. Departure - Departure Time of Disposition: 10:25 Disposition: Home, Self-Care 01 Clinical Impression: Thoracic radiculopathy Chronic pain Qualifiers: Chronic pain type: other chronic pain Qualified Code(s): G89.29 - Other chronic pain - Discharge Information *PRESCRIPTION DRUG MONITORING PROGRAM REVIEWED*: Yes *COPY OF PRESCRIPTION DRUG MONITORING REPORT IN PATIENT DANUTA: Not Applicable Instructions: Pain Medicine Instructions, [id number] Referrals: Bob Nunez MD [Primary Care Provider] - Forms: ED Department Discharge Additional Instructions: Chronic pain is difficult to treat especially in the emergency department and is best managed by your PCP clinic. Contact your PCP today for ocean transportation intermediary management of your chronic pain concerns. Return to the ED if new or worsening symptoms. Keep your appointment with the pain clinic in [place] next week. Sepsis Event Note - Evaluation Sepsis Screening Result: No Definite Risk - Focused Exam Vital Signs: Vital Signs Temp Pulse Resp BP Pulse Ox 03/24/20 10:23 99 22 H 152/101 H 91 L 03/24/20 08:59 36.3 C 116 H 26 H 178/115 H 95 Date Exam was Performed: 03/24/20 Time Exam was Performed: 15:10 - Assessment/Plan Assessment:: Chronic thoracic radiculopathy pain. Chronic Pain syndrome. Plan: Chronic pain is difficult to treat especially in the emergency department and is best managed by your PCP clinic. Contact your PCP today for ocean transportation intermediary management of your chronic pain concerns. Return to the ED if new or worsening symptoms. Keep your appointment with the pain clinic in [place] next week.
== END 2020-03-24 10:35 | disposition home or self-care (01) ==
LOC: VM.ED 08:53
DX: M54.14 Radiculopathy, thoracic region (principal); G89.29 Other chronic pain; F17.210 Nicotine dependence, cigarettes, uncomplicated; E78.00 Pure hypercholesterolemia, unspecified; I10 Essential (primary) hypertension; J44.9 Chronic obstructive pulmonary disease, unspecified; E11.9 Type 2 diabetes mellitus without complications; E66.9 Obesity, unspecified; Z68.30 Body mass index [BMI] 30.0-30.9, adult; Z88.8 Allergy status to other drugs, medicaments and biological substances; Z79.82 Long term (current) use of aspirin; Z79.84 Long term (current) use of oral hypoglycemic drugs; Z86.73 Personal history of transient ischemic attack (TIA), and cerebral infarction without residual deficits; Z79.899 Other long term (current) drug therapy
CPT/HCPCS: 36415; 80053; 81003; 85025; 96372; 99283; J1170; J2550; 99284-GF

== ENCOUNTER 2021-11-03 15:00 | Emergency (ER) | payer MEDICARE ==
[2021-11-03] MEDS ORDERED: Sodium Chloride 0.9% 10 ML Syringe FLUSH PRN (15:02)
[2021-11-03 16:00] LABS: CHLORIDE,CL 96 mmol/L (98-107); SODIUM,NA 133 mmol/L (136-145)
[2021-11-03 16:04] LABS: BARBITURATE SCREEN,URINE NEGATIVE (NEGATIVE); BENZODIAZEPINES SCREEN,URINE NEGATIVE (NEGATIVE); BUPRENORPHINE SCREEN,URINE NEGATIVE (NEGATIVE); METHAMPHETAMINE SCREEN, URINE NEGATIVE (NEGATIVE); THC SCREEN,URINE 50 NG/ML POSITIVE (NEGATIVE)
[2021-11-03] MEDS: Iopamidol 755 Mg/ML 100 ML Bottle IVPUSH ONE (16:50)
[2021-11-03] MEDS: cefTRIAXone 1 GM Vial IVPUSH ONE (17:36)
[2021-11-03] MEDS: Take Home: Amoxicillin/Clavulanate K 875-125 MG Tab, 2 Tab Pack PO ONE ×2 (17:36→17:48)
== END 2021-11-03 18:06 | disposition home or self-care (01) ==
LOC: VM.ED 15:00
DX: E11.40 Type 2 diabetes mellitus with diabetic neuropathy, unspecified (principal); G89.29 Other chronic pain; J18.9 Pneumonia, unspecified organism; E27.8 Other specified disorders of adrenal gland; F19.90 Other psychoactive substance use, unspecified, uncomplicated; E78.00 Pure hypercholesterolemia, unspecified; I10 Essential (primary) hypertension; J44.9 Chronic obstructive pulmonary disease, unspecified; F17.210 Nicotine dependence, cigarettes, uncomplicated; I45.10 Unspecified right bundle-branch block; E66.9 Obesity, unspecified; Z68.29 Body mass index [BMI] 29.0-29.9, adult; Z88.8 Allergy status to other drugs, medicaments and biological substances; Z88.5 Allergy status to narcotic agent; Z79.82 Long term (current) use of aspirin; Z79.84 Long term (current) use of oral hypoglycemic drugs; Z79.899 Other long term (current) drug therapy
CPT/HCPCS: 36415; 70450; 71275; 80053; 80305-QW; 80307; 81003; 82800; 82947; 84484; 85025; 85379; 93005; 96374; 99284-25; A9270-GY; J0696